=== PATIENT | female | born 1995 | race African-American/Black ===

== ENCOUNTER 2020-09-28 13:05 | Emergency (ER) | payer OTHER ==
[~2020-09-28] VITALS: Ht 162.6 cm; Wt 81.4 kg
[2020-09-28] MEDS ORDERED: MULTTAB20 PO (13:17)
[2020-09-28] MEDS ORDERED: ACETAMINOPHEN TAB 650MG DOSE (2X325MG) PO ONE (15:35)
[2020-09-28] MEDS ORDERED: NS 1,000 ML IV ONE (15:35)
[2020-09-28 16:25] LABS: BASO # 0.1 10^3/uL (0.0-0.2); BASO % 0.8 % (0.0-1.0); EOS # 0.2 10^3/uL (0.0-0.5); EOS % 2.8 % (0.0-3.0); HEMATOCRIT 40.2 % (36.0-47.0); HEMOGLOBIN 13.1 g/dl (12.0-15.5); LYMPH # 2.5 10^3/uL (1.5-5.0); LYMPH % 38.2 % (24.0-44.0); MEAN CORPUSCULAR HEMOGLOBIN 25.4 pg (27.0-33.0); MEAN CORPUSCULAR HGB CONC 32.6 g/dl (32.0-36.5); MEAN CORPUSCULAR VOLUME 78.1 fl (80.0-96.0); MONO # 0.4 10^3/uL (0.0-0.8); MONO % 6.6 % (2.0-8.0); NEUTROPHILS # 3.4 10^3/uL (1.5-8.5); NEUTROPHILS % 51.4 % (36.0-66.0); PLATELET COUNT, AUTOMATED 414 10^3/uL (150-450); RED BLOOD COUNT 5.15 10^6/uL (4.00-5.40); WHITE BLOOD COUNT 6.5 10^3/uL (4.0-10.0)
[2020-09-28 16:54] LABS: BLOOD UREA NITROGEN 11 MG/DL (7-18); CALCIUM LEVEL 9.2 MG/DL (8.5-10.1); CARBON DIOXIDE LEVEL 24 MEQ/L (21-32); CHLORIDE LEVEL 107 MEQ/L (98-107); CREATININE FOR GFR 0.49 MG/DL (0.55-1.30); FREE T4 1.05 NG/DL (0.76-1.46); FREE THYROXINE INDEX 3.6 % (1.3-4.8); GLOMERULAR FILTRATION RATE > 60.0 (>60); GLUCOSE, FASTING 80 MG/DL (70-100); HCG, SERUM QUANTITATIVE 60991 MIU/ML; POTASSIUM SERUM 4.1 MEQ/L (3.5-5.1); SODIUM LEVEL 137 MEQ/L (136-145); T UPTAKE 34 % (30-39); THYROID STIMULATING HORMONE 0.571 uIU/ML (0.358-3.740); THYROXINE (T4) 10.7 UG/DL (4.5-12.0)
[2020-09-28 18:00] VITALS: BP 127/76
== END 2020-09-28 18:20 | disposition home or self-care (01) ==
LOC: M ED 13:05 → EDBD 13:05 → M ED 18:20
DX: O26.891 Other specified pregnancy related conditions, first trimester (principal); R51.9 Headache, unspecified; Z3A.09 9 weeks gestation of pregnancy; Z79.899 Other long term (current) drug therapy

== ENCOUNTER → 2020-12-06 | Outpatient (CLI) | payer OTHER ==
[~2020-12-06] MED LIST: MULTTAB20 PO
[2020-12-06 18:39] LABS: HEMATOCRIT 38.3 % (36.0-47.0); HEMOGLOBIN 12.1 g/dl (12.0-15.5); MEAN CORPUSCULAR HEMOGLOBIN 24.8 pg (27.0-33.0); MEAN CORPUSCULAR HGB CONC 31.6 g/dl (32.0-36.5); MEAN CORPUSCULAR VOLUME 78.6 fl (80.0-96.0); PLATELET COUNT, AUTOMATED 387 10^3/uL (150-450); RED BLOOD COUNT 4.87 10^6/uL (4.00-5.40); WHITE BLOOD COUNT 6.9 10^3/uL (4.0-10.0)
[2020-12-06 19:04] LABS: GLUCOSE CHALLENGE TEST 1 HOUR 145 MG/DL (LESS THAN 140)
[2020-12-06 19:59] LABS: HEPATITIS C VIRUS ABY INDEX < 0.0 INDEX (<0.8)
[2020-12-06 20:00] LABS: HIV 1&2 SCREEN CENTAUR NEGATIVE (NEGATIVE)
[2020-12-06 23:32] LABS: GC DNA AMPLIFICATION NEGATIVE (NEGATIVE)
== END ==
LOC: M PLALAB 13:06
PROVIDERS: ATTEND Advanced Practice Midwife
DX: O09.291 Supervision of pregnancy with other poor reproductive or obstetric history, first trimester (principal)

== ENCOUNTER → 2020-12-10 | Outpatient (CLI) | payer OTHER | LOC: M LAB 08:13 | PROVIDERS: ATTEND Advanced Practice Midwife | DX: O99.810 Abnormal glucose complicating pregnancy (principal); Z3A.00 Weeks of gestation of pregnancy not specified ==

== ENCOUNTER 2020-12-12 23:19 | Emergency (ER) | payer OTHER ==
[~2020-12-12] VITALS: Ht 162.6 cm; Wt 88.6 kg
--- OUTSIDE RECORDS SUMMARY | 2020-12-12 23:28 | CCD ---
Author Author [facility] Organization [facility] Address Unknown Phone Unavailable Care Team Providers Care Associate Director Of Sales Name Role Phone Trinidad Hagen Unavailable PROBLEMS Type Condition ICD9-CM Code [id number] Code Onset Dates Condition S tatus W/U Status Risk SNOMED Code Notes Problem Personal history of gestational diabetes Z86.32 Active confirmed 295348997 Problem Supervision of other normal Z34.80 Ac tive confirm [id number] ALLERGIES No Known Allergies ENCOUNTERS from 1993 to 2020-11-16 Encounter Location Date Provider Diagnosis [facility] [address] [place] [address] [place] [address] Nov, Trinidad Hieu Previous de livery, antepartum O34.219 IMMUNIZATIONS No Information SOCIAL HISTORY Tobacco Use: Social History Observation Description Date Details (start date - stop date) Never Smoker Sex Assigned At : Social History Observation Description Sex Assigned At Unknown Education: Question Answer Notes Level of Education: Bachelor's Degree Domestic Violence: Question Answer Notes Status: No history of abuse Tobacco Use: Question Answer Notes Are you a: never smoker REASON FOR REFERRAL No Information VITAL SIGNS Weight 194.4 lbs Nov, Weight-kg 88.18 kg Nov, Height 64 in Nov, BMI 33.369 kg/m2 Nov, Blood pressure systolic 126 mm Hg Nov, Blood pressure diastolic 76 mm Hg Nov, MEDICATIONS Medication SIG (Take, Route, Frequency, Duration) Notes Start Da te End Date Status 27-1 MG 1 tablet Orally Once a day Active PROCEDURES No Information RESULTS No Results REASON FOR VISIT 4 WK PN MEDICAL (GENERAL) HISTORY Type Description Date Surgical History C section Surgical History hernia repair Hospitalization History childbirth Hospitalization History surgery Goals Section No Information Health Concerns No Information MEDICAL EQUIPMENT No Information MENTAL STATUS No Information FUNCTIONAL STATUS No Information ASSESSMENTS Encounter Date Diagnosis Assessment Notes Treatment Notes Treatm ent Clinical Notes Nov, Previous delivery, antepartum (ICD-10 - O34.219) PLAN OF TREATMENT Treatment Notes Test Name Order Date WWBC OBS COMPLETE 2020-11-16 Next Appt Details 4 Weeks Reason: Provider Name:Michelle Radhika Larsen, 2020-12-15 03:00:00 PM, [address] [facility], , [place], [address], Insurance Providers Payer Name Payer Address Payer Phone Insured Name Patient Relati onship to Insured Coverage Start Date Coverage End Date [facility] [address] [facility] [address] BRENDA BOLDEN MEDICAID [facility] [address] [facility] [id number] BRENDA BOLDEN
--- OUTSIDE RECORDS SUMMARY | 2020-12-12 23:28 | CCD ---
Author Author [facility] Organization [facility] Address Unknown Phone Unavailable Care Team Providers Care Route Supervisor Name Role Phone Jairo Linda Unavailable PROBLEMS Type Condition ICD9-CM Code LQP09-OT Code Onset Dates Condition S tatus W/U Status Risk SNOMED Code Notes Problem Personal history of gestational diabetes Z86.32 Active confirmed 226875649 Problem Supervision of other normal Z34.80 Ac tive confirm [id number] ALLERGIES No Known Allergies ENCOUNTERS from 1993 to 2020-11-05 Encounter Location Date Provider Diagnosis [facility] [address] [place] [address] [place] [address] Oct, Jairo Linda IMMUNIZATIONS No Information SOCIAL HISTORY Tobacco Use: [...] REASON FOR REFERRAL No Information VITAL SIGNS No information MEDICATIONS Medication SIG (Take, Route, Frequency, Duration) Notes Start Da te End Date Status 27-1 MG 1 tablet Orally Once a day Active PROCEDURES No Information RESULTS No Results REASON FOR VISIT covid exemption form MEDICAL (GENERAL) HISTORY Type Description Date Surgical History C section Surgical History hernia repair Hospitalization History childbirth Hospitalization History surgery Goals Section No Information Health Concerns No Information MEDICAL EQUIPMENT No Information MENTAL STATUS No Information FUNCTIONAL STATUS No Information ASSESSMENTS No Information PLAN OF TREATMENT Next Appt Details Provider Name:Jairo Linda 2020-11-17 02:15:00 PM, [address] [facility], , [place], [address], Provider Name:Michelle Larsen, 2020-12-15 03:00:00 PM, [address] [facility], , [place], [address], Insurance Providers Payer Name Payer Address Payer Phone Insured Name Patient Relati onship to Insured Coverage Start Date Coverage End Date MEDICAID [id number] [address] [facility] [id number] BRENDA BOLDEN [facility] COMMUNITY PLAN [facility] [address] [facility] [address] BRENDA BOLDEN
--- OUTSIDE RECORDS SUMMARY | 2020-12-12 23:28 | CCD ---
Author Author [facility] Organization [facility] Address Unknown Phone Unavailable Care Team Providers Care Cylinder Devalver Name Role Phone Michelle Larsen Unavailable PROBLEMS Type Condition ICD9-CM Code DTY92-BP Code Onset Dates Condition S tatus W/U Status Risk SNOMED Code Notes Problem Personal history of gestational diabetes Z86.32 Active confirmed 459323473 Problem Supervision of other normal Z34.80 Ac tive confirm [id number] ALLERGIES No Known Allergies ENCOUNTERS from 1993 to 2020-11-08 Encounter Location Date Provider Diagnosis [facility] [address] [place] [address] [place] [address] Oct, Michelle Larsen Supervision of pregn guzman with other poor reproductive or obstetric history, first trimester O09.291 ; Maternal care due to low transverse uterine scar from previous delivery O34.211 ; 12 wee ks gestation of Z3A.12 and Personal history of gestational diabetes Z86.32 IMMUNIZATIONS No Information SOCIAL HISTORY Tobacco Use: [...] FOR REFERRAL No Information VITAL SIGNS Weight 191.8 lbs Oct, Height 64 in Oct, BMI 32.922 kg/m2 Oct, Blood pressure systolic 140 mm Hg Oct, Blood pressure diastolic 70 mm Hg Oct, MEDICATIONS Medication SIG (Take, Route, Frequency, Duration) Notes Start Da te End Date Status 27-1 MG 1 tablet Orally Once a day Active PROCEDURES No Information RESULTS No Results REASON FOR VISIT 1 PN MEDICAL (GENERAL) HISTORY Type Description Date Surgical History C section Surgical History hernia repair Hospitalization History childbirth Hospitalization History surgery Goals Section No Information Health Concerns No Information MEDICAL EQUIPMENT No Information MENTAL STATUS No Information FUNCTIONAL STATUS No Information ASSESSMENTS Encounter Date Diagnosis Assessment Notes Treatment Notes Treatm ent Clinical Notes Oct, Supervision of wit h other poor reproductive or obstetric history, first trimester (ICD-10 - O09.291) Oct, Maternal care due to low tra nsverse uterine scar from previous delivery (ICD-10 - O34.211) Oct, 12 weeks gestation of (ICD-10 - Z3A.12 ) Oct, Personal history of gestational diabetes (ICD-10 - Z86.32) PLAN OF TREATMENT Treatment Notes Test Name Order Date HIV 1and2 ANTIBODY SCREEN 2020-10-20 SYPHILIS ANTIBODY (RPR SCREEN) 2020-10-20 CBC - Complete Blood Count 2020-10-20 RUBELLA IMMUNE STATUS IgG 2020-10-20 URINE CULTURE 2020-10-20 CHLAMYDIA & GC DNA AMPLIFICAT 2020-10-20 HEPATITIS C ANTIBODY INDEX 2020-10-20 HBSAG 2020-10-20 Type and Screen Prenatal1 2020-10-20 Glucose Challenge Test 1 Hour 2020-10-20 Next Appt Details 4 Weeks Reason:PN Provider Name:Jairo Linda, 2020-11-17 02:15:00 PM, [address] [facility] [phone], [place], [address], Provider Name:Michelle Larsen, 2020-12-15 03:00:00 PM, [address] [facility] [phone], [place], [address], Follow Up:4 WeeksPN Insurance Providers Payer Name Payer Address Payer Phone Insured Name Patient Relati onship to Insured Coverage Start Date Coverage End Date [facility] [address] [facility] [address] BRENDA BOLDEN R self MEDICAID [employer] [address] [facility] [address] BRENDA BOLDEN self
--- OUTSIDE RECORDS SUMMARY | 2020-12-12 23:28 | CCD ---
Author Author [facility] Organization [facility] Address Unknown Phone Unavailable Care Team Providers Care Flaking Roll Operator Name Role Phone Trinidad Hagen Unavailable PROBLEMS Type Condition ICD9-CM Code TDT38-DN Code Onset Dates Condition S tatus W/U Status Risk SNOMED Code Notes Problem Personal history of gestational diabetes Z86.32 Active confirmed 038597753 Problem Supervision of other normal Z34.80 Ac tive confirm [id number] ALLERGIES No Known Allergies ENCOUNTERS from 1993 to 2020-12-02 Encounter Location Date Provider Diagnosis [facility] [address] [place] [address] [place] [address] Nov, Trinidad Hagen IMMUNIZATIONS No Information SOCIAL HISTORY Tobacco Use: [...] Information RESULTS No Results REASON FOR VISIT abdominal pain/hernia MEDICAL (GENERAL) HISTORY Type Description Date Surgical History C section Surgical History hernia repair Hospitalization History childbirth Hospitalization History surgery Goals Section No Information Health Concerns No Information MEDICAL EQUIPMENT No Information MENTAL STATUS No Information FUNCTIONAL STATUS No Information ASSESSMENTS No Information PLAN OF TREATMENT Next Appt Details Provider Name:Michelle Larsen, 2020-12-15 03:00:00 PM, [address] [place] [address], , [place], [address], Provider Name:Kirsten Ole Emerson, 2021-04-12 0 2:00:00 PM, [address] [place] [address], , [place], [address], Provider Name:Kirsten Norman, 2021-04-26 0 7:30:00 AM, [address] [place] [address], , [place], [address], Provider Name:Michelle Larsen, 2021-04-26 07:30:00 AM, [address] [place] [address], , [place], [address], Provider Name:Kirsten Norman, 2021-05-10 1 0:20:00 AM, [address] [place] [address], , [place], [address], Insurance Providers Payer Name Payer Address Payer Phone Insured Name Patient Relati onship to Insured Coverage Start Date Coverage End Date [facility] COMMUN[facility] [address] [facility] [address] BRENDA BOLDEN MEDICAID [facility] [address] [facility] [address] BRENDA BOLDEN
--- OUTSIDE RECORDS SUMMARY | 2020-12-12 23:28 | CCD ---
Author Author [facility] Organization [facility] Address Unknown Phone Unavailable Support Name Relationship Address Phone UE Next Of Kin Unknown Unavailable SELF Next Of Kin Unknown Unavailable MICHAEL KEERTHI Next Of Kin [address] [facility] [address] [place] [address] KEERTHI RODRIGUEZ [place] [address] [place] [address] Unavailable Re-disclosure Warning The records that you are about to access may contain information from federally-assisted alcohol or drug abuse programs. If such information is present, then the following federally mandated warning applies: This information has been disclosed to you from records protected by federal confidentiality rules (42 CFR part 2). The federal rules prohibit you from making any further disclosure of this information unless further disclosure is expressly permitted by the written consent of the person to whom it pertains or as otherwise permitted by 42 CFR part 2. A general authorization for the release of medical or other information is NOT sufficient for this purpose. The Federal rules restrict any use of the information to criminally investigate or prosecute any alcohol or drug abuse patient.The records that you are about to access may contain highly sensitive health information, the redisclosure of which is protected by Article 27-F of the [facility] Public Health law. If you continue you may have access to information: Regarding HIV / AIDS; Provided by facilities licensed or operated by the [facility] Office of Mental Health; or Provided by the [facility] Office for People With Developmental Disabilities. If such information is present, then the following [facility] mandated warning applies: This information has been disclosed to you from confidential records which are protected by state law. State law prohibits you from making any further disclosure of this information without the specific written consent of the person to whom it pertains, or as otherwise permitted by law. Any unauthorized further disclosure in violation of state law may result in a fine or intermediate sentence or both. A general authorization for the release of medical or other information is NOT sufficient authorization for further disc losure. Encounters Encounter Providers Location Date Indications Data Source(s ) Unknown [address] [facility] [address] 12/08/2020 12:00:00 AM EDT eCW1 ([facility]) Unknown [address] [facility] [address] 12/01/2020 12:00:00 AM EDT eCW1 ([facility]) ( ESTOB) [facility] Est OB [address] [place] [address] 11/16/2020 12:00:00 AM EDT eCW1 ([facility]) Unknown [address] [facility] [address] 11/05/2020 12:00:00 AM EDT eCW1 ([facility]) ( NEWOB) [facility] New OB Visit [address] [place] [address] 10/20/2020 12:00:00 AM EDT eCW1 ([facility]) Medications No Information Insurance Providers Payer name Policy type / Coverage type Policy ID Covered alliance party ID Covered alliance party's relationship to velasco Policy Velasco Plan Information [facility] COMM[facility] [id number] SP [id number] [facility] COMMUN[facility] PLAN [facility] [id number] SP [id number] [facility] MEDICAID [id number] SP [id number] K [id number] [facility] COMMUNITY PLAN [facility] [id number] SP [id number] Problems, Conditions, and Diagnoses Code Display Name Description Problem Type Effective Dates Data Source(s) Z86.32 [id number] Personal history of gestational diabetes Problem 10/20/2020 12:00:00 AM EDT eCW1 ([facility]) Z34.80 care Supervision of other normal P neillem 10/12/2020 12:00:00 AM EDT eCW1 ([facility]) Surgeries/Procedures No Information Results No Information Social History Code Duration Value Status Description Data Source(s ) Smoking 11/16/2020 12:00:00 AM EDT Never Smoker completed Never S moker eCW1 ([facility]) Smoking 11/16/2020 12:00:00 AM EDT Never Smoker completed Never S moker eCW1 ([facility]) Smoking 11/16/2020 12:00:00 AM EDT Never Smoker completed Never S moker eCW1 ([facility]) Smoking 10/20/2020 12:00:00 AM EDT Never Smoker completed Never S moker eCW1 ([facility]) Smoking 10/20/2020 12:00:00 AM EDT Never Smoker completed Never S moker eCW1 ([facility]) Vital Signs ID Date Data Source UNK Name Value Range Interpretation Code Description Data Source(s) Body weight 194.4 [lb_av] 194.4 [lb_av] eCW1 ([facility]) Body weight 88.18 kg 88.18 kg eCW1 ([facility]) Body height 64 [in_i] 64 [in_i] eCW1 ([facility]) Body mass index (BMI) [Ratio] 33.369 kg/m2 33.3 69 kg/m2 eCW1 ([facility]) Systolic blood pressure 126 mm[Hg] 126 mm[Hg] e CW1 ([facility]) Diastolic blood pressure 76 mm[Hg] 76 mm[Hg] eCW1 ([facility]) Body weight 191.8 [lb_av] 191.8 [lb_av] eCW1 ([facility]) Body height 64 [in_i] 64 [in_i] eCW1 ([facility]) Body mass index (BMI) [Ratio] 32.922 kg/m2 32.9 22 kg/m2 eCW1 ([facility]) Systolic blood pressure 140 mm[Hg] 140 mm[Hg] e CW1 ([facility]) Diastolic blood pressure 70 mm[Hg] 70 mm[Hg] eCW1 ([facility])
--- OUTSIDE RECORDS SUMMARY | 2020-12-12 23:28 | CCD ---
Author Author [facility] Organization [facility] Address Unknown Phone Unavailable Care Team Providers Care Specialty Transformer Assembler Name Role Phone Michelle Larsen Unavailable PROBLEMS Type Condition ICD9-CM Code RHS79-WG Code Onset Dates Condition S tatus W/U Status Risk SNOMED Code Notes Problem Personal history of gestational diabetes Z86.32 Active confirmed [id number] Problem Supervision of other normal Z34.80 Ac tive confirm [id number] ALLERGIES No Known Allergies ENCOUNTERS from 1993 to 2020-12-09 Encounter Location Date Provider Diagnosis [facility] [address] [place] [address] [place] [address] Nov, Michelle Chava Impaired glucose in , antepartum O99.810 IMMUNIZATIONS No Information SOCIAL HISTORY Tobacco Use: [...] Information RESULTS No Results REASON FOR VISIT failed 1 hour MEDICAL (GENERAL) HISTORY Type Description Date Surgical History C section Surgical History hernia repair Hospitalization History childbirth Hospitalization History surgery Goals Section No Information Health Concerns No Information MEDICAL EQUIPMENT No Information MENTAL STATUS No Information FUNCTIONAL STATUS No Information ASSESSMENTS Encounter Date Diagnosis Assessment Notes Treatment Notes Treatm ent Clinical Notes Nov, Impaired glucose in , antepartum (ICD-1 0 - O99.810) PLAN OF TREATMENT Treatment Notes Test Name Order Date Glucose RICARDA 3 HR Gestational 2020-12-08 Next Appt Details Provider Name:Michelle Larsen, 2020-12-15 03:00:00 PM, [address] [place] [address], , [place], [address], Provider Name:Kirsten Norman, 2021-04-12 0 2:00:00 PM, [address] [place] [address], , [place], [address], Provider Name:Kirsten Norman, 2021-04-26 0 7:30:00 AM, [address] [place] [address], , [place], [address], Provider Name:Michelle Larsen, 2021-04-26 07:30:00 AM, [address] [place] [address], , [place], [address], Provider Name:Kirsten Norman, 2021-05-10 1 0:20:00 AM, [address] [place] [address], , [place], [address], Insurance Providers Payer Name Payer Address Payer Phone Insured Name Patient Relati onship to Insured Coverage Start Date Coverage End Date MEDICAID [employer] [address] [facility] [id number] BRENDA BOLDEN [facility] COMMUNITY PL[facility] [address] [facility] [address] BRENDA BOLDEN
--- OUTSIDE RECORDS SUMMARY | 2020-12-13 00:14 | CCD ---
Author Author [facility] Organization [facility] Address Unknown Phone Unavailable Support Name Relationship Address Phone UE Next Of Kin Unknown Unavailable SELF Next Of Kin Unknown Unavailable MICHAEL KEERTHI Next Of Kin [address] [facility] [address] [place] [address] KEERTHI RODRIGUEZ [place] [address] [place] [address] Unavailable Re-disclosure Warning The records that you [...] is protected by Article 27-F of the [facility] Public Health law. If you continue you may have access to information: Regarding HIV / AIDS; Provided by facilities licensed or operated by the [facility] Office of Mental Health; or Provided by the [facility] Office for People With Developmental Disabilities. If such information is present, then the following [facility] mandated warning applies: This information has been [...] law may result in a fine or skilled nursing sentence or both. A general authorization for the release of medical or other information is NOT sufficient authorization for further disc losure. Encounters Encounter Providers Location Date Indications Data Source(s ) Unknown [address] [facility] [address] 12/08/2020 12:00:00 AM EDT eCW1 ([facility]) Unknown [address] [facility] [address] 12/01/2020 12:00:00 AM EDT eCW1 ([facility]) ( ESTOB) [facility] Est OB [address] [place] [address] 11/16/2020 12:00:00 AM EDT eCW1 ([facility]) Unknown [address] [facility] [address] 11/05/2020 12:00:00 AM EDT eCW1 ([facility]) ( NEWOB) [facility] New OB Visit [address] [place] [address] 10/20/2020 12:00:00 AM EDT eCW1 ([facility]) Medications No Information Insurance Providers Payer name Policy type / Coverage type Policy ID Covered constitution party ID Covered constitution party's relationship to velasco Policy Velasco Plan Information [facility] COMMUNITY PLAN [facility] [id number] SP [id number] [facility]UNITY PLAN [facility] [id number] SP [id number] [facility] MED[facility] [id number] SP [id number] K [id number] [facility] COMMUNITY PLAN [facility] [id number] SP [id number] Problems, Conditions, and Diagnoses Code Display Name Description Problem Type Effective Dates Data Source(s) Z86.32 [id number] Personal history of gestational diabetes Problem 10/20/2020 12:00:00 AM EDT eCW1 ([facility]) Z34.80 care Supervision of other normal P neillem 10/12/2020 12:00:00 AM EDT eCW1 ([facility]) Surgeries/Procedures No Information Results No Information Social History Code Duration Value Status Description Data Source(s ) Smoking 11/16/2020 12:00:00 AM EDT Never Smoker completed Never S moker eCW1 ([facility]) Smoking 11/16/2020 12:00:00 AM EDT Never Smoker completed Never S moker eCW1 ([facility]) Smoking 11/16/2020 12:00:00 AM EDT Never Smoker completed Never S moker eCW1 ([facility]) Smoking 10/20/2020 12:00:00 AM EDT Never Smoker completed Never S moker eCW1 ([facility]) Smoking 10/20/2020 12:00:00 AM EDT Never Smoker completed Never S moker eCW1 ([facility]) Vital Signs ID Date Data Source UNK Name Value Range Interpretation Code Description Data Source(s) Body weight 194.4 [lb_av] 194.4 [lb_av] eCW1 ([facility]) Body weight 88.18 kg 88.18 kg eCW1 ([facility]) Body height 64 [in_i] 64 [in_i] eCW1 ([facility]) Body mass index (BMI) [Ratio] 33.369 kg/m2 33.3 69 kg/m2 eCW1 ([facility]) Systolic blood pressure 126 mm[Hg] 126 mm[Hg] e CW1 ([facility]) Diastolic blood pressure 76 mm[Hg] 76 mm[Hg] eCW1 ([facility]) Body weight 191.8 [lb_av] 191.8 [lb_av] eCW1 ([facility]) Body height 64 [in_i] 64 [in_i] eCW1 ([facility]) Body mass index (BMI) [Ratio] 32.922 kg/m2 32.9 22 kg/m2 eCW1 ([facility]) Systolic blood pressure 140 mm[Hg] 140 mm[Hg] e CW1 ([facility]) Diastolic blood pressure 70 mm[Hg] 70 mm[Hg] eCW1 ([facility])
--- NOTE | 2020-12-13 01:04 | REPVR ---
PROCEDURE INFORMATION: Exam: US Abdomen; Limited Exam date and time: 12/13/2020 12:01 AM Age: 25 years old Clinical indication: Abdominal pain; Other: Superior to umbilicus; ; Prior surgery; Surgery date: 6+ months; Additional info: Assess for hernia TECHNIQUE: Imaging protocol: US abdomen. Real time ultrasound with image documentation. Limited exam focused on the region of clinical interest. COMPARISON: No relevant prior studies available. FINDINGS: There is a fat containing supraumbilical ventral hernia. Defect at rest measures 14 mm x 12 mm and defect with Valsalva measures 17 mm x 13 mm. No bowel is visualized. Hernia is not reducible. There is a single live intrauterine gestation with cardiac activity detected at 147 bpm. Anterior placenta. IMPRESSION: Supraumbilical fat containing hernia as above. Electronically signed by: Abimael Mancini On 12/13/2020 01:03:28 AM
[2020-12-13 01:30] VITALS: BP 125/73
== END 2020-12-13 01:35 | disposition home or self-care (01) ==
LOC: M ED 23:19
DX: O99.891 Other specified diseases and conditions complicating pregnancy (principal); K42.9 Umbilical hernia without obstruction or gangrene; Z3A.19 19 weeks gestation of pregnancy

== ENCOUNTER → 2020-12-14 | Outpatient (CLI) | payer OTHER ==
--- NOTE | 2020-12-14 14:23 | REP ---
INDICATION: ANATOMY. COMPARISON: None. TECHNIQUE: Real-time sonographic evaluation of the gravid uterus performed. FINDINGS: Estimated gestational age is20 weeks 1 day, EDC 05/02/2021. Today's measurements indicate appropriate growth. Presentation: Transverse Placenta anterior, grade 1, without evidence of placenta previa. heart rate is recorded at 153 beats per minute. Amniotic fluid is subjectively normal. Closed cervical length is measured at 4.2 cm. Biometry chart: BPD: 47 mm, 20 weeks 1 days, 50th percentile. HC: 177 mm, 20 weeks 1 days, 50th percentile AC: 149 mm, 20 weeks 1 days, 49th percentile Femur length: 32 mm, 20 weeks 0 days, 47th percentile HC to AC ratio: 1.19, normal range 1.06-1.24. Estimated weight: 331g, 42nd percentile. anatomy: Cranium: Grossly normal Lateral Ventricles/Choroid Plexus: Grossly normal Posterior Fossa/Cerebellum: Grossly normal Nose/lips/profile: Grossly normal Four chamber heart: Grossly normal Right ventricular outflow tract: Grossly normal Left ventricular outflow tract: Grossly normal Left-sided stomach: Grossly normal Kidneys: Grossly normal Bladder: Grossly normal Cord Insertion: Grossly normal 3 vessel cord: Grossly normal Spine: Not well seen due to position IMPRESSION: Viable single intrauterine gestation as above. <Electronically signed by Jasper Ren > 12/14/20 [id number]
== END ==
LOC: M WHC 07:59
PROVIDERS: ATTEND Advanced Practice Midwife
DX: O34.212 Maternal care for vertical scar from previous cesarean delivery (principal); Z3A.20 20 weeks gestation of pregnancy; O32.2XX0 Maternal care for transverse and oblique lie, not applicable or unspecified

== ENCOUNTER → 2021-01-10 | Outpatient (CLI) | payer OTHER ==
[~2021-01-10] MED LIST changes: +ACET325C5 PO; +METO10TA2 PO; +ONDA4TAB6 PO; +TUMS500C PO
== END ==
LOC: M WHC 11:47
PROVIDERS: ATTEND Advanced Practice Midwife
DX: O09.292 Supervision of pregnancy with other poor reproductive or obstetric history, second trimester (principal); Z3A.24 24 weeks gestation of pregnancy

== ENCOUNTER → 2021-01-14 | Outpatient (REF) | payer OTHER, MEDICAID ==
[~2021-01-14] MED LIST changes: -ACET325C5 PO; -METO10TA2 PO; -ONDA4TAB6 PO; -TUMS500C PO
== END ==
LOC: M PLALAB 16:25
PROVIDERS: ATTEND Advanced Practice Midwife
DX: Z36.89 Encounter for other specified antenatal screening (principal); Z3A.00 Weeks of gestation of pregnancy not specified

== ENCOUNTER 2021-02-18 12:59 | Outpatient (CLI) | payer OTHER, MEDICAID ==
[~2021-02-18] VITALS: Ht 162.6 cm; Wt 95.7 kg
[2021-02-18 13:14] VITALS: BP 119/70
[2021-02-18] MEDS ORDERED: ACET325C5 PO (13:17)
[2021-02-18] MEDS ORDERED: HOME MED LIST COMPLETE! XX SCH (13:20)
== END 2021-02-18 15:57 | disposition home or self-care (01) ==
LOC: M LDO 12:59
PROVIDERS: ATTEND Advanced Practice Midwife
DX: O47.03 False labor before 37 completed weeks of gestation, third trimester (principal); O24.419 Gestational diabetes mellitus in pregnancy, unspecified control; O34.219 Maternal care for unspecified type scar from previous cesarean delivery; Z3A.29 29 weeks gestation of pregnancy

== ENCOUNTER 2021-02-22 16:39 | Outpatient (CLI) | payer OTHER, MEDICAID ==
[~2021-02-22] VITALS: Ht 162.6 cm; Wt 95.7 kg
[~2021-02-22 16:39] MED LIST changes: +ACET325C5 PO
[2021-02-22 16:57] VITALS: BP 119/75
[2021-02-22] MEDS ORDERED: ONDANSETRON 4 MG ORAL DISINTEGRATING TAB PO PRN (17:05)
[2021-02-22 18:08] VITALS: BP 127/74
[2021-02-22] MEDS ORDERED: TUMS500C PO (18:13)
[2021-02-22] MEDS ORDERED: HOME MED LIST COMPLETE! XX SCH (18:15)
[2021-02-22 19:30] VITALS: BP 120/75
[2021-02-22] MEDS ORDERED: METOCLOPRAMIDE INJ 10MG/2ML VIAL (J2765 PER 1) IV ONE ×2 (20:05→21:00)
[2021-02-22] MEDS ORDERED: METOCLOPRAMIDE 10 MG TAB PO ONE (20:05)
[2021-02-22] MEDS ORDERED: LR 1,000 ML IV ONE (20:55)
[2021-02-22 22:44] VITALS: BP 134/79
[2021-02-22] MEDS ORDERED: PANTOPRAZOLE 40MG VIAL (C9113 PER 1) IV ONE (23:00)
[2021-02-22 23:17] LABS: HEMOGLOBIN 12.8 g/dl (12.0-15.5); MEAN CORPUSCULAR HEMOGLOBIN 24.7 pg (27.0-33.0); MEAN CORPUSCULAR VOLUME 77.1 fl (80.0-96.0); PLATELET COUNT, AUTOMATED 420 10^3/uL (150-450); RED BLOOD COUNT 5.19 10^6/uL (4.00-5.40); WHITE BLOOD COUNT 7.9 10^3/uL (4.0-10.0)
[2021-02-22 23:32] LABS: ALT/SGPT 17 U/L (12-78); BILIRUBIN,TOTAL 0.6 MG/DL (0.2-1.0); BLOOD UREA NITROGEN 9 MG/DL (7-18); CALCIUM LEVEL 9.4 MG/DL (8.5-10.1); CARBON DIOXIDE LEVEL 18 MEQ/L (21-32); CHLORIDE LEVEL 106 MEQ/L (98-107); CREATININE FOR GFR 0.48 MG/DL (0.55-1.30); GLOMERULAR FILTRATION RATE > 60.0 (>60); GLUCOSE, FASTING 93 MG/DL (70-100); POTASSIUM SERUM 3.9 MEQ/L (3.5-5.1); SODIUM LEVEL 137 MEQ/L (136-145); TOTAL PROTEIN 7.3 GM/DL (6.4-8.2)
[2021-02-23 01:44] VITALS: BP 130/79
[2021-02-23] MEDS ORDERED: LR 1,000 ML IV SCH (02:10)
[2021-02-23] MEDS ORDERED: METOCLOPRAMIDE INJ 10MG/2ML VIAL (J2765 PER 1) IV SCH (03:00)
[2021-02-23 06:28] VITALS: BP 119/69
[2021-02-23] MEDS ORDERED: ONDA4TAB6 PO (06:31)
[2021-02-23] MEDS ORDERED: METO10TA2 PO (06:31)
== END 2021-02-23 08:05 | disposition home or self-care (01) ==
LOC: M LDO 16:39
PROVIDERS: ATTEND Obstetrics & Gynecology
DX: O60.03 Preterm labor without delivery, third trimester (principal); O21.8 Other vomiting complicating pregnancy; Z3A.30 30 weeks gestation of pregnancy
CPT/HCPCS: 59025; 80053; 85027; 96360; 96361; 96374; 96376; C9113; J2765; Q0162

== ENCOUNTER → 2021-03-23 | Outpatient (CLI) | payer MEDICAID, OTHER ==
[~2021-03-23] MED LIST changes: +METO10TA2 PO; +ONDA4TAB6 PO; +TUMS500C PO
== END ==
LOC: M LAB 08:25
PROVIDERS: ATTEND Advanced Practice Midwife
DX: O09.292 Supervision of pregnancy with other poor reproductive or obstetric history, second trimester (principal)

== ENCOUNTER → 2021-04-07 | Outpatient (REF) | payer OTHER, MEDICAID | LOC: M SFHCWAGY 16:38 | PROVIDERS: ATTEND Specialist | DX: Z34.83 Encounter for supervision of other normal pregnancy, third trimester (principal); Z36.85 Encounter for antenatal screening for Streptococcus B ==

== ENCOUNTER → 2021-04-07 | Outpatient (REF) | payer OTHER, MEDICAID | LOC: M PLALAB 07:56 | PROVIDERS: ATTEND Specialist | DX: Z34.83 Encounter for supervision of other normal pregnancy, third trimester (principal); Z53.9 Procedure and treatment not carried out, unspecified reason ==

== ENCOUNTER → 2021-04-21 | Outpatient (CLI) | payer MEDICAID, OTHER | LOC: M LABSMTC 09:18 | PROVIDERS: ATTEND Anesthesiology | DX: Z01.812 Encounter for preprocedural laboratory examination (principal) ==

== ENCOUNTER 2021-09-05 17:15 | Emergency (ER) | payer OTHER, MEDICAID ==
[~2021-09-05] VITALS: Ht 162.6 cm; Wt 95.8 kg
[2021-09-05 17:15] VITALS: BP 131/82
[~2021-09-05 17:15] MED LIST changes: +COLA100C5 PO; +IBUP80TA PO; +NORE0.353 PO; +PERCOCET PO
[2021-09-05] MEDS ORDERED: ACETAMINOPHEN 500 MG TAB PO ONE (21:15)
[2021-09-06] MEDS ORDERED: TRAM50TA2 PO (00:35)
[2021-09-06] MEDS ORDERED: traMADol 50 MG TAB PO ONE (00:50)
== END 2021-09-06 01:09 | disposition home or self-care (01) ==
LOC: M ED 17:15
DX: K42.9 Umbilical hernia without obstruction or gangrene (principal); R11.2 Nausea with vomiting, unspecified; Z79.899 Other long term (current) drug therapy

== ENCOUNTER → 2021-09-15 | Outpatient (CLI) | payer MEDICAID, OTHER, SELFPAY ==
[~2021-09-15] MED LIST changes: +TRAM50TA2 PO
== END ==
LOC: M LABSMTC 11:42
PROVIDERS: ATTEND Anesthesiology
DX: Z01.818 Encounter for other preprocedural examination (principal); Z11.52 Encounter for screening for COVID-19

== ENCOUNTER → 2021-09-20 | Day surgery (SDC) | payer OTHER ==
[~2021-09-20] VITALS: Ht 162.6 cm; Wt 94.7 kg
[~2021-09-20] MED LIST changes: +BUPIVACAINE HCL 0.25% 30ML VIAL As Ordered ONE; +LR 1,000 ML IV SCH
[2021-09-20 14:32] VITALS: BP 137/97
== END | disposition home or self-care (01) ==
LOC: M SDC 14:13
PROVIDERS: ATTEND Surgery
DX: K43.2 Incisional hernia without obstruction or gangrene (principal); Z53.9 Procedure and treatment not carried out, unspecified reason

== ENCOUNTER → 2021-09-22 | Outpatient (CLI) | payer OTHER ==
[~2021-09-22] MED LIST changes: -BUPIVACAINE HCL 0.25% 30ML VIAL As Ordered ONE; -LR 1,000 ML IV SCH
== END ==
LOC: M LABSMTC 10:59
PROVIDERS: ATTEND Anesthesiology
DX: Z01.812 Encounter for preprocedural laboratory examination (principal); Z20.822 Contact with and (suspected) exposure to COVID-19

== ENCOUNTER 2021-09-27 06:10 | Day surgery (SDC) | payer OTHER ==
[~2021-09-27] VITALS: Ht 162.6 cm; Wt 94.8 kg
[~2021-09-27 06:10] MED LIST changes: +LR 1,000 ML IV SCH; +NS 1,000 ML IV ONE
[2021-09-27] MEDS ORDERED: BUPIVACAINE HCL 0.25% 30ML VIAL As Ordered ONE (07:11)
[2021-09-27] MEDS ORDERED: MIDAZOLAM INJ 2MG/2ML VIAL (J2250 PER 1MG) As Ordered ONE (07:13)
[2021-09-27] MEDS ORDERED: fentaNYL 250 MCG/5 ML INJECTION As Ordered ONE (07:13)
[2021-09-27] MEDS ORDERED: propofoL 200 MG/20 ML VIAL As Ordered ONE (07:14)
[2021-09-27] MEDS ORDERED: METOCLOPRAMIDE INJ 10MG/2ML VIAL (J2765 PER 1) As Ordered ONE (07:14)
[2021-09-27] MEDS ORDERED: ACETAMINOPHEN 1000MG 100ML IV BTL (OFIRMEV) (J0131 PER 10MG) As Ordered ONE (07:14)
[2021-09-27] MEDS ORDERED: ROCURONIUM BROMIDE 50 MG/5 ML VIAL As Ordered ONE ×2 (07:14→08:25)
[2021-09-27] MEDS ORDERED: ONDANSETRON 4MG 2ML VIAL As Ordered ONE (07:14)
[2021-09-27] MEDS ORDERED: KETOROLAC 60MG 2ML VIAL As Ordered ONE (07:14)
[2021-09-27] MEDS ORDERED: dexameTHASONE 4 MG/ML 1ML VIAL (J1100 PER 1MG) As Ordered ONE (07:14)
[2021-09-27] MEDS ORDERED: LIDOCAINE 2% INJ 100 MG/5 ML SYRINGE As Ordered ONE (07:14)
[2021-09-27] MEDS ORDERED: GLYCOPYRROLATE INJ 0.2 MG/ML 2 ML VIAL As Ordered ONE (08:05)
[2021-09-27] MEDS ORDERED: SUGAMMADEX SODIUM 500 MG/5 ML VIAL (BRIDION) As Ordered ONE (08:09)
[2021-09-27] MEDS ORDERED: LR 1,000 ML IV SCH (11:35)
[2021-09-27] MEDS ORDERED: ONDANSETRON 4MG 2ML VIAL IV PRN (11:35)
[2021-09-27] MEDS ORDERED: fentaNYL 100 MCG/2 ML INJECTION IV PRN (11:35)
[2021-09-27] MEDS: oxyCODONE 5MG TAB PO PRN ×2 (11:53→12:23)
[2021-09-27] MEDS ORDERED: ACETAMINOPHEN TAB 650MG DOSE (2X325MG) PO PRN (11:55)
[2021-09-27] MEDS ORDERED: IBUPROFEN 600MG TAB PO PRN (11:55)
[2021-09-27] MEDS ORDERED: NORCO, ANEXSIA 5/325MG TABLET (HYDROcodone/ACETAMINOPHEN) PO PRN (11:55)
[2021-09-27] MEDS ORDERED: HYDR-3715 PO (12:12)
[2021-09-27 14:31] VITALS: BP 128/73
== END 2021-09-27 15:03 | disposition home or self-care (01) ==
LOC: M SDC 06:10
PROVIDERS: ATTEND Surgery
DX: K43.2 Incisional hernia without obstruction or gangrene (principal)
CPT/HCPCS: 49656; 81025; 88300; C1781; J0131; J1100; J1885; J2250; J2405; J2765; J3010; S2900

== ENCOUNTER 2022-01-09 10:10 | Emergency (ER) | payer OTHER ==
[~2022-01-09] VITALS: Ht 162.6 cm; Wt 93.7 kg
[~2022-01-09 10:10] MED LIST changes: +HYDR-3715 PO; -LR 1,000 ML IV SCH; -NS 1,000 ML IV ONE
[2022-01-09 12:07] LABS: BASO # 0.1 10^3/uL (0.0-0.2); EOS # 0.2 10^3/uL (0.0-0.5); EOS % 2.6 % (0.0-3.0); HEMATOCRIT 41.7 % (36.0-47.0); LYMPH # 2.7 10^3/uL (1.5-5.0); LYMPH % 44.3 % (24.0-44.0); MEAN CORPUSCULAR HEMOGLOBIN 24.2 pg (27.0-33.0); MEAN CORPUSCULAR HGB CONC 31.2 g/dl (32.0-36.5); MEAN CORPUSCULAR VOLUME 77.5 fl (80.0-96.0); MONO # 0.4 10^3/uL (0.0-0.8); MONO % 6.1 % (2.0-8.0); NEUTROPHILS # 2.8 10^3/uL (1.5-8.5); NEUTROPHILS % 45.7 % (36.0-66.0); PLATELET COUNT, AUTOMATED 442 10^3/uL (150-450); RED BLOOD COUNT 5.38 10^6/uL (4.00-5.40); WHITE BLOOD COUNT 6.1 10^3/uL (4.0-10.0)
[2022-01-09 12:44] LABS: CHLORIDE LEVEL 104 MMOL/L (98-107); POTASSIUM SERUM 4.4 MMOL/L (3.5-5.1); SODIUM LEVEL 142 MMOL/L (136-145)
[2022-01-09 12:45] LABS: CARBON DIOXIDE LEVEL 28 MMOL/L (20-31)
[2022-01-09 12:48] LABS: HCG, SERUM QUANTITATIVE < 2.6 MIU/ML (<4.2)
[2022-01-09 12:49] LABS: BLOOD UREA NITROGEN 18 MG/DL (9-23)
[2022-01-09 12:51] LABS: CALCIUM LEVEL 9.3 MG/DL (8.5-10.1); GLUCOSE, FASTING 96 MG/DL (60-100)
[2022-01-09 12:53] LABS: GLOMERULAR FILTRATION RATE > 60.0 (>60)
[2022-01-09] MEDS ORDERED: MIRA3350 PO (16:33)
[2022-01-09 16:48] VITALS: BP 122/68
== END 2022-01-09 16:49 | disposition home or self-care (01) ==
LOC: M ED 10:10
DX: N92.0 Excessive and frequent menstruation with regular cycle (principal); K59.00 Constipation, unspecified; E66.9 Obesity, unspecified

== ENCOUNTER → 2022-01-27 | Outpatient (REF) | payer OTHER ==
[~2022-01-27] MED LIST changes: +MIRA3350 PO
== END ==
LOC: M PLALAB 16:24
PROVIDERS: ATTEND Nurse Practitioner Family
DX: Z12.4 Encounter for screening for malignant neoplasm of cervix (principal)

== ENCOUNTER → 2022-06-01 | Outpatient (CLI) | payer OTHER | LOC: M WHC 10:13 | PROVIDERS: ATTEND Surgery | DX: S20.159A Superficial foreign body of breast, unspecified breast, initial encounter (principal) ==